=== PATIENT | female | born 1990 | race African-American/Black ===

== ENCOUNTER 2017-02-23 10:03 | Emergency (ER) | payer MEDICAID ==
[2017-02-23 11:18] VITALS: BP 128/56
== END 2017-02-23 11:20 | disposition home or self-care (01) ==
LOC: ER 10:08
DX: J20.9 Acute bronchitis, unspecified (principal); J45.909 Unspecified asthma, uncomplicated; Z88.0 Allergy status to penicillin
CPT/HCPCS: 71020